=== PATIENT | female | born 1985 | race Two or more races ===

== ENCOUNTER 2016-11-18 01:07 | Emergency (ER) | payer OTHER ==
[~2016-11-18] VITALS: Ht 152.4 cm; Wt 99.8 kg
--- NOTE | ~2016-11-18 | EKG ---
PATIENT: ANUSHKA ZARAGOZA UNIT #: [id number] Ventricular Rate: 111 BPM Atrial Rate: 111 BPM P-R Interval: 134 ms QRS Duration: 92 ms Q-T Interval: 352 ms QTC Calculation(Bezet): 478 ms P [place]: 47 degrees Calculated R [place]: 56 degrees Calculated T [place]: 32 degrees Diagnosis Line: Sinus tachycardia Diagnosis Line: Otherwise normal ECG Diagnosis Line: No previous ECGs available Diagnosis Line: Confirmed by KINDRA EVANS MD ([id number]) on Diagnosis Line: 11/19/2016 10:51:49 AM INTERPRETING MD: CRISTINA FENG
--- NOTE | ~2016-11-18 | CT71 ---
[facility] A Service of [facility] RADIOLOGY TEXT RESULTS PATIENT: ANUSHKA ZARAGOZA LOCATION: [facility] : 81 UNIT #: [id number] AGE: [address]: Kory Sifuentes MD SEX: F ORDER DR: [id number] [address] [address] [id number] MR#: [id number] #: [id number] NAME: ANUSHKA ZARAGOZA : 1985 SEX: F STUDY DATE/TIME: 11/18/2016 2:19 UNIT: [facility] ROOM: STUDY DESCRIPTION: CT Head Wo Contrast Attending Physician: Kory Sifuentes M.D. Ordering Physician: Kory Sifuentes M.D. Primary Care Physician: Primary Care Physician No MEDICAL IMAGING REPORT This report is preliminary unless electronic signature is present EXAM CT head without contrast INDICATION Seizure x3 today. PROCEDURE Unenhanced CT of the head. This CT exam was performed with one or more of the following radiation dose reduction techniques: Automatic exposure control, adjustment of mA and/or kV according to patient size and iterative reconstruction. COMPARISON None FINDINGS No acute hemorrhage, abnormal mass effect, extraaxial fluid collection or hydrocephalus. No depressed calvarial fracture. Paranasal sinuses, mastoid air cells are clear. IMPRESSION No acute intracranial findings. Dictated by... Devang Bob M.D. THIS IS AN ELECTRONICALLY VERIFIED REPORT Devang Bob M.D. at 11/18/2016 9:53 PM LINDA/jayda TD: 11/18/2016 11:21 JOB #: [id number] [facility] A Service [facility] RADIOLOGY TEXT RESULTS PATIENT: ANUSHKA ZARAGOZA LOCATION: [facility] : 81 UNIT #: [id number] AGE: [address]: Kory Sifuentes MD SEX: F ORDER DR: MEDICAL IMAGING REPORT Page 1 of 1 COPY
[2016-11-18 01:53] LABS: URINE SOURCE CLEAN CATCH
[2016-11-18 02:04] LABS: URINE APPEARANCE CLEAR; URINE BILIRUBIN NEG (NEG); URINE BLOOD 1+ (NEG); URINE COLOR YELLOW; URINE GLUCOSE NEG (NEG); URINE KETONE TRACE (NEG); URINE LEUKOCYTE ESTERASE NEG (NEG); URINE NITRATE NEG (NEG); URINE PROTEIN 1+ (NEG); URINE SPECIFIC GRAVITY 1.018 (1.003-1.035); URINE UROBILINOGEN 0.2 MG/DL (NEG)
[2016-11-18 02:07] LABS: U HYALINE CASTS AUWI 0-2 /[LPF]; URINE BACTERIA AUWI NEG (NEGATIVE); URINE SQUAMOUS EPITHELIAL CELL OCC /[HPF]; UWBCS1 AUWI 0-2 (0-5)
[2016-11-18 02:10] LABS: CULTURE INDICATED? NO
[2016-11-18 02:18] LABS: AMPHETAMINE NEG (NEG); BARBITURATES NEG (NEG); BENZODIAZEPINES NEG (NEG); COCAINE NEG (NEG); MARIJUANA NEG (NEG); OPIATES NEG (NEG); TRICYCLIC ANTIDEPRESSANTS NEG (NEG); U METHADONE NEG (NEG)
[2016-11-18 02:26] LABS: BASOPHIL# 0.1 X10e3 (0-0.3); BASOPHIL% 0.3 % (0-2.5); DIFF IND YES; EOSINOPHIL% 0.2 % (0.0-7.0); HEMATOCRIT 39.4 % (35.0-45.0); LYMPHOCYTE# 1.4 X10e3 (1.0-3.5); LYMPHOCYTE% 7.6 % (17.0-45.0); MEAN CELL VOLUME 83.7 FL (83-96); MEAN CORPUSCULAR HEMOGLOBIN 27.6 PG (28-34); MEAN PLATELET VOLUME 8.2 FL (6.5-11.5); MONOCYTE# 0.5 X10e3 (0-1.0); MONOCYTE% 2.9 % (3.0-12.0); NEUTROPHIL# 16.4 X10e3 (1.5-7.1); PLATELET COUNT 253 X10e3 (140-420); RED BLOOD COUNT 4.71 X10e (3.90-5.30); WHITE BLOOD COUNT 18.4 X10e3 (4.0-10.5)
[2016-11-18 02:48] LABS: ALBUMIN SERUM 4.3 g/dL (3.5-5.0); ALKALINE PHOSPHATASE 102 U/L (32-92); ALT (SGPT) 33 U/L (10-40); AST (SGOT) 31 U/L (10-42); BILIRUBIN, DIRECT 0.1 mg/dL (0.0-0.2); BILIRUBIN,INDIRECT 0.2 mg/dL (0.0-0.9); BILIRUBIN,TOTAL 0.3 mg/dL (0.2-2.0); BLOOD UREA NITROGEN 15 mg/dL (9-23); BUN/CREATININE RATIO 18.75; CALCIUM SERUM 8.5 mg/dL (8.4-10.2); CARBON DIOXIDE 18 mmol/L (22-31); CHLORIDE 105 mmol/L (100-111); CREATININE SERUM 0.8 mg/dL (0.6-1.4); GLUCOSE FASTING 151 mg/dL (70-110); POTASSIUM 3.4 mmol/L (3.5-5.1); PROTEIN TOTAL SERUM 7.9 g/dL (6.0-8.3); SODIUM 136 mmol/L (135-145)
[2016-11-18 02:51] LABS: ANISOCYTOSIS MOD; PLATELET ESTIMATE NORMAL (NORMAL)
[2016-11-18 02:52] LABS: MICROCYTOSIS SL; OVALOCYTES PRESENT; SPHEROCYTE SL
[2016-11-18 02:53] LABS: ALCOHOL BLOOD <5 mg/dL (0)
== END 2016-11-18 03:20 | disposition home or self-care (01) ==
LOC: CED 01:07
PROVIDERS: Emergency Medicine
DX: R56.9 Unspecified convulsions (principal); S00.512A Abrasion of oral cavity, initial encounter; R11.0 Nausea; X58.XXXA Exposure to other specified factors, initial encounter
CPT/HCPCS: 36415; 70450; 80048; 80076; 80307; 81003; 82947; 84703; 85025; 93005; 96361; 96374; 96375; 99285; G0480; J1885; J2405